=== PATIENT | female | born 2000 | race Caucasian/White ===

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

== ENCOUNTER 2025-05-27 20:01 | Emergency (ER) | payer BC, OTHER ==
[~2025-05-27] VITALS: Ht 165.1 cm; Wt 65.4 kg
[2025-05-27 20:02] VITALS: BP 133/93; RESP 22; TEMP 98.9; O2SAT 97
[2025-05-27 20:38] VITALS: PULSE 100
--- NOTE | 2025-05-27 20:41 | ECG ---
[facility] Test Date: 2025-05-27 Test Time: 20:38:12 Pat Name: KATTY MAR Department: Room: Gender: F Ticket Sorter: KESHA : 2000 Requested By: EMERGENCY EMERGENCY Order Number: [id number] Reading MD: Josiah Ching Measurements Intervals [place] Rate: 100 P: 76 [place]: 133 QRS: 85 QRSD: 84 T: 30 QT: 313 QTc: 404 Interpretive Statements Sinus tachycardia Nonspecific T abnormalities, anterior leads Electronically Signed On 05-28-2025 11:00:43 PST by Josiah Ching Please click the below link to view image of tracing.
== END 2025-05-27 23:00 | disposition left against medical advice (07) ==
LOC: ER 20:01
DX: R06.02 Shortness of breath (principal); Z79.899 Other long term (current) drug therapy
CPT/HCPCS: 93005